=== PATIENT | female | born 1950 | race Caucasian/White ===

== ENCOUNTER → 2022-12-03 | Day surgery (SDC) | payer OTHER, MEDICAID ==
[~2022-12-03] VITALS: Ht 157.5 cm; Wt 82.7 kg
[~2022-12-03] MED LIST: AMLO-257 PO; ASPI-1450 PO; ATOR10TA PO; BALANCED SALT 15 ML OPHTHALMIC IRRIG.SOLN ONE; BIOT5TAB PO; CALC-1124 PO; CHOL25TA4 PO; DICL100G60 TP; EPINEPHrine 1:1,000 [1 MG/ML] VIAL ONE; FOLI0.4T6 PO; FentaNYL CITRATE PF 100 MCG/2 ML VIAL IVP ONE; GABA-1216 PO; HYALURONATE SOD 8.5MG/0.85ML 10 MG/ML SYRINGE IO ONE; HYDR-4527 PO; LEVO50 PO; LIDOCAINE/PF 1% 2 ML VIAL ONE; LORA10TA7 PO; MELA5TAB40 PO; MIDAZOLAM HCL 2 MG/2 ML VIAL IVP ONE; POVIDONE-IODINE 5% 30 ML OPHTHALMIC SOLUTION ONE; RINGERS SOLUTION,LACTATED 0 ML IV ONE; RINGERS SOLUTION,LACTATED 500 ML IV ONE; SERT-162 PO; TETRACAINE HCL/PF 0.5% 4 ML OPHTHALMIC SOLUTION ONE
[2022-12-03] MEDS: KETOROLAC TROMETHAMINE 0.5% 5 ML OPHTHALMIC SOLUTION OD SCH ×3 (11:46→12:03)
[2022-12-03] MEDS: TROPICAMIDE 1% 2 ML OPHTHALMIC SOLUTION OD SCH ×3 (11:47→12:03)
[2022-12-03] MEDS: PHENYLEPHRINE HCL 2.5% 2 ML OPHTHALMIC SOLUTION OD SCH ×3 (11:47→12:03)
[2022-12-03] MEDS: MOXIFLOXACIN HCL 0.5% 3 ML OPHTHALMIC SOLUTION OD SCH ×3 (11:47→12:03)
== END | disposition still patient (30) ==
LOC: SURGERY 09:44
PROVIDERS: ATTEND Ophthalmology
DX: H25.11 Age-related nuclear cataract, right eye (principal); I10 Essential (primary) hypertension; Z98.890 Other specified postprocedural states; Z96.641 Presence of right artificial hip joint; Z79.899 Other long term (current) drug therapy; Z79.82 Long term (current) use of aspirin
CPT/HCPCS: 66984; 93005; J0171; J3010; J3490; J2250; Q9967; V2632; J7120

== ENCOUNTER 2023-05-06 09:01 | Day surgery (SDC) | payer OTHER, MEDICAID ==
[~2023-05-06] VITALS: Ht 157.5 cm; Wt 82.7 kg
[~2023-05-06 09:01] MED LIST changes: -EPINEPHrine 1:1,000 [1 MG/ML] VIAL ONE; -FentaNYL CITRATE PF 100 MCG/2 ML VIAL IVP ONE; -HYALURONATE SOD 8.5MG/0.85ML 10 MG/ML SYRINGE IO ONE; +KETOROLAC TROMETHAMINE 0.5% 5 ML OPHTHALMIC SOLUTION ONE; -LIDOCAINE/PF 1% 2 ML VIAL ONE; -MIDAZOLAM HCL 2 MG/2 ML VIAL IVP ONE; +MOXIFLOXACIN HCL 0.5% 3 ML OPHTHALMIC SOLUTION ONE; +PHENYLEPHRINE HCL 2.5% 2 ML OPHTHALMIC SOLUTION ONE; -RINGERS SOLUTION,LACTATED 0 ML IV ONE; -TETRACAINE HCL/PF 0.5% 4 ML OPHTHALMIC SOLUTION ONE; +TROPICAMIDE 1% 2 ML OPHTHALMIC SOLUTION ONE
[2023-05-06] MEDS ORDERED: BALANCED SALT 15 ML OPHTHALMIC IRRIG.SOLN OU ONE (09:02)
[2023-05-06] MEDS ORDERED: HYALURONATE SOD 8.5MG/0.85ML 10 MG/ML SYRINGE IO ONE (09:02)
[2023-05-06] MEDS ORDERED: MIDAZOLAM HCL 2 MG/2 ML VIAL IVP ONE (09:02)
[2023-05-06] MEDS ORDERED: FentaNYL CITRATE PF 100 MCG/2 ML VIAL IVP ONE (09:02)
[2023-05-06] MEDS ORDERED: CHONDR SULF A SOD/HYALURONATE 1.05 ML KIT IO ONE (09:02)
[2023-05-06] MEDS: TROPICAMIDE 1% 2 ML OPHTHALMIC SOLUTION OS SCH (09:47)
[2023-05-06] MEDS: MOXIFLOXACIN HCL 0.5% 3 ML OPHTHALMIC SOLUTION OS SCH (09:47)
[2023-05-06] MEDS: KETOROLAC TROMETHAMINE 0.5% 5 ML OPHTHALMIC SOLUTION OS SCH (09:47)
[2023-05-06] MEDS: PHENYLEPHRINE HCL 2.5% 2 ML OPHTHALMIC SOLUTION OS SCH (09:47)
[2023-05-06] MEDS: RINGERS SOLUTION,LACTATED 500 ML IV ONE (09:48)
[2023-05-06] MEDS: EPINEPHrine 1:1,000 [1 MG/ML] VIAL ONE (10:30)
[2023-05-06] MEDS: LIDOCAINE/PF 1% 2 ML VIAL ONE (10:30)
[2023-05-06] MEDS: TETRACAINE HCL/PF 0.5% 4 ML OPHTHALMIC SOLUTION ONE (10:30)
== END 2023-05-06 11:50 | disposition home or self-care (01) ==
LOC: SURGERY 09:01
PROVIDERS: ATTEND Ophthalmology
DX: H25.12 Age-related nuclear cataract, left eye (principal); I10 Essential (primary) hypertension; F41.9 Anxiety disorder, unspecified; Z98.49 Cataract extraction status, unspecified eye
CPT/HCPCS: 93005; 66984; J0171; J3010; J3490; J2250; Q9967; J7120; V2632